=== PATIENT | female | born 1980 | race Hispanic/Latino ===

== ENCOUNTER 2019-05-17 17:25 | Emergency (ER) | payer MEDICAID, OTHER | END 2019-05-17 18:29 | disposition home or self-care (01) | LOC: EDH 17:25 | DX: L23.9 Allergic contact dermatitis, unspecified cause (principal); Z98.51 Tubal ligation status; Z72.0 Tobacco use ==

== ENCOUNTER 2019-08-17 17:58 | Emergency (ER) | payer MEDICAID, OTHER ==
[2019-08-17 19:42] LABS: RAPID GROUP A STREP NEGATIVE (NEGATIVE)
== END 2019-08-17 20:12 | disposition home or self-care (01) ==
LOC: EDH 17:58
DX: J02.9 Acute pharyngitis, unspecified (principal); B34.9 Viral infection, unspecified; Z72.0 Tobacco use; Z88.6 Allergy status to analgesic agent; Z98.51 Tubal ligation status
CPT/HCPCS: 87804; 87880